=== PATIENT | female | born 1985 | race Caucasian/White ===

== ENCOUNTER 2021-06-25 08:37 | Emergency (ER) | payer MEDICARE, SELFPAY ==
[2021-06-25 08:51] VITALS: BP 123/86; PULSE 92; RESP 18; TEMP 36.3; O2SAT 95; BMI 37.0
--- NOTE | 2021-06-25 09:48 | ED.DENTAL ---
HPI - Dental/Oral General Chief complaint: Dental/Oral Stated complaint: dental pain Time Seen by Provider: 06/25/21 09:40 Source: patient Mode of arrival: ambulatory Limitations: no limitations History of Present Illness HPI Narrative: 35-year-old female with no known medical history presents to the emergency department with complaints of generalized mouth pain/teeth pain X1 year worsening over the past week. Patient tells me that she was recently told that she has a cavity on every single tooth she has in her mouth, and she notes most of her teeth are rotting, and falling. She states she is scheduled to get these teeth pulled next week however she is in severe pain. She has not been seen by a dentist in many years, and has not had any dental procedures. Her main complaint today is pain. She goes to [facility] dental. Her appointments for next week. She denies any fevers, chills, nausea, vomiting, chest pain, ear pain, sore throat,shortness of breath. MD Complaint: tooth pain Location: Tooth # (All teeth in mouth ) Onset (ago): year(s) (1) Duration: constant Severity: severe Relieving factors: nothing Exacerbating factors: other ( everything ) Context: history of dental caries and poor dental care Treatment prior to arrival: none Related Data Previous Rx's Medication Instructions Recorded amoxicillin 500 mg capsule 500 mg PO BID 10 Days #20 cap 06/25/21 oxycodone-acetaminophen 5 mg-325 1 tab PO TID PRN #5 tab 06/25/21 mg tablet (Percocet) Allergies Allergy/AdvReac Type Severity Reaction Status Date / Time codeine [CODEINE] Allergy Unknown NAUSEA Verified 06/25/21 08:50 VOMITTING Fish Containing Products Allergy Unknown SWELLING Verified 06/25/21 08:50 Review of Systems Review of Systems: Constitutional : No Fever, No Chills, Dental: + dental pain, + mouth pain Cardiovascular : No Chest Pain, No SOB Respiratory : No Dyspnea Gastrointestinal : No abdominal pain Musculoskeletal : No Joint Swelling Skin : No rash, No skin laceration Neuro : No Weakness, No Numbness Psych : No SI/HI PMFSH Past Medical History Attestation statement: The following information was validated with the patient. Source: old records reviewed and nursing notes reviewed Medical History (Updated 06/25/21 @ 09:47 by SHAINA Melendez) Patient denies medical problems Social History Social History Advance Directives: No Advance Directives Information Provided: No Physical Exam Vital Signs: Vital Signs: Last Vital Signs Temp 97.3 F 06/25/21 08:51 Pulse 92 06/25/21 08:51 Resp 18 06/25/21 08:51 BP 123/86 06/25/21 08:51 Pulse Ox 95 06/25/21 08:51 Body Mass Index 37.0 Appearance: Alert.? Oriented X3.? No acute distress.? Head: Normocephalic, atraumatic, no step-offs or deformities Eyes: Pupils equal, round and reactive to light.? ENT: Pharynx normal.?+ poor dention throughout, missing teeth, rotting teeth,broken teeth evident caries. + Halitosis. No palpable fluctuance or visible abscess. No discharge. No trismus. No gum swelling or bleeding. No tongue swelling Neck: Normal inspection.? Neck supple.? CVS: Normal heart rate and rhythm.? Pulses normal.? Respiratory: No respiratory distress.? Breath sounds normal.? Abdomen: Soft and nontender.? Skin: Skin warm and dry.? Normal skin color.? Normal skin turgor.? Extremities: No lower extremity edema.? No calf ttp. 5/5 strength to bilateral upper and lower extremities Neuro: Oriented X 3.? No motor deficit.? No sensory deficit. Course Reevaluation(s) Reevaluation #1: Patient agrees with the plan, she is safe for discharge home with dentist follow-up next week at [facility]. She will be discharged home on pain medicine and antibiotics. Time: 09:57 MDM - Dental/Oral MDM Narrative Medical decision making narrative: 0945 35-year-old female with no known medical history presents to the emergency department with mouth/tooth pain x1 year progressively worsening over past week. Patient states that she is scheduled to get her teeth pulled and have mild work done next week at [facility]. Her main complaint today is pain. She denies all signs of infection. Upon physical examination patient appears well controlling secretions, speaking in full sentences, no distress. There is poor dentition throughout, missing teeth, rotting teeth,broken teeth evident caries. Severe Halitosis. No palpable fluctuance or visible abscess. No discharge. No trismus. No gum swelling or bleeding. No tongue swelling Plan at this time is to start patient on prophylactic antibiotic in prescribe arm pain medicine that will get her through to her dentist appointment. I attest that I have reviewed patients [place], and at the time prescribing the patient a controlled substance is appropriate based off of patients diagnosis and treatment plan. Medical Records Attestation: I reviewed the patient's medical records. Lab Data Attestation: I reviewed the patient's lab results. Critical Care Time Critical Care Time Critical Care Time: No Discharge Plan Discharge Clinical Impression: Toothache Patient Disposition: Home, Self-Care Instructions: Toothache (ED) Additional Instructions: Take your medications as prescribed. If you were prescribed antibiotics today, it is important that you take your medication to their entirety, do not skip any doses, do not finish them early. Follow-up with your primary care provider this week. Please follow-up with your dentist. Return to the emergency department with new or worsening symptoms. In case of emergency call 911 I attest that I have reviewed patients [place], and at the time prescribing the patient a controlled substance is appropriate based off of patients diagnosis and treatment plan. Prescriptions: New amoxicillin 500 mg capsule 500 mg PO BID 10 Days Qty: 20 RF: 0 oxycodone-acetaminophen [Percocet] 5-325 mg tablet 1 tab PO TID PRN (Reason: pain) Qty: 5 RF: 0 Referrals: Physician,Unknown J [Primary Care Provider] - 2 days Stand Alone Forms: Work/School Release
[2021-06-25] MEDS: oxyCODONE HCl Immed Release 5 MG TABLET PO (10:15)
== END 2021-06-25 10:24 | disposition home or self-care (01) ==
LOC: HO.ED 09:52
PROVIDERS: Emergency Provider Emergency Medicine
DX: K08.89 Other specified disorders of teeth and supporting structures (principal); K02.9 Dental caries, unspecified; R19.6 Halitosis
CPT/HCPCS: 99283

== ENCOUNTER 2021-12-23 16:34 | Emergency (ER) | payer MEDICARE, SELFPAY ==
[2021-12-23 17:36] VITALS: BP 129/67; PULSE 88; RESP 18; TEMP 36; O2SAT 97; BMI 37.3
--- NOTE | 2021-12-23 17:58 | ED_ITS ---
HPI - Dental/Oral General Chief complaint: Dental/Oral Stated complaint: l ear pain r dental pain Time Seen by Provider: 12/23/21 17:47 Source: patient Mode of arrival: ambulatory Limitations: no limitations History of Present Illness HPI Narrative: 36 yo female with a longstanding history of extensive dental caries with severe phobia of the dentist here with right sided upper denta pain intermittent for months. patient tells me she saw her dentist and they want to give her general anesthesia for dental care. Patient tells me she is waiting to hear from her PCP to get a pre-op physical for clearance. She also reports for the last four days her left ear has been hurting her. No URI symptoms. No fevers, chills. Related Data Previous Rx's Medication Instructions Recorded amoxicillin 500 mg capsule 500 mg PO BID 10 Days #20 cap 06/25/21 oxycodone-acetaminophen 5 mg-325 1 tab PO TID PRN #5 tab 06/25/21 mg tablet (Percocet) amoxicillin 500 mg capsule 500 mg PO BID #20 cap 12/23/21 ibuprofen 600 mg tablet 600 mg PO Q8H PRN #20 tab 12/23/21 oxycodone 5 mg tablet 5 mg PO Q8H PRN #5 tab 12/23/21 Allergies Allergy/AdvReac Type Severity Reaction Status Date / Time codeine [CODEINE] Allergy Unknown NAUSEA Verified 06/25/21 08:50 VOMITTING Fish Containing Products Allergy Unknown SWELLING Verified 06/25/21 08:50 Review of Systems Review of Systems: Yes all other systems are reviewed and are negative Constitutional: Constitutional: Reports no additional constitutional complaints, Denies body ache(s), Denies chills, Denies fever(s), Denies headache(s) and Denies weakness Eyes: Eyes: Reports no additional eye complaints and Denies change in vision ENT: Reports system reviewed and no additional complaints, except as documented, Reports dental pain, Denies dizziness, Reports otalgia, Denies headache(s), Denies nasal congestion, Denies nasal discharge and Denies neck pa in Cardiovascular: Cardiovascular: Reports no additional cardiovascular complaints, Denies chest pain, Denies leg edema and Denies dyspnea Respiratory: Respiratory: Reports no additional respiratory complaints, Denies cough and Denies dyspnea Gastrointestinal: Gastrointestinal: Reports no additional gastrointestinal complaints, Denies abdominal pain, Denies diarrhea, Denies nausea and Denies vomiting Genitourinary: Genitourinary: Reports no additional female genitourinary complaints and Denies urinary incontinence Musculoskeletal: Musculoskeletal: Reports no additional musculoskeletal complaints, Denies back pain, Denies arthralgias, Denies joint swelling, Denies neck pain, Denies numbness and Denies tingling Integumentary/Breasts: Skin/Breast: Reports system reviewed and no additional complaints, except as docu and Denies rash Neurologic: Reports system reviewed and no additional complaints, except as documented, Denies Abnormal speech present, Denies dizziness, Denies headache(s), Denies numbness, Denies tingling and Denies weakness PMFSH Past Medical History Attestation statement: The following information was validated with the patient. Source: old records reviewed and nursing notes reviewed Medical History Patient denies medical problems Social History Social History Advance Directives: No Advance Directives Information Provided: No Physical Exam Vital Signs: Vital Signs: Last Vital Signs Temp 96.8 F 12/23/21 17:36 Pulse 88 12/23/21 17:36 Resp 18 12/23/21 17:36 BP 129/67 12/23/21 17:36 Pulse Ox 97 12/23/21 17:36 BMI result Body Mass Index 37.3 Const: General: cooperative, healthy appearing, comfortable and no acute distress Orientation/consciousness: patient oriented x3 Limitations: no limitations HEENT: Head: Yes normal to inspection Ears: hearing grossly normal bilaterally, TM normal on the right and TM abnormal bulging, wth effusion and erythematous on the left General nose exam: Normal external nose present Face and sinus: Yes normal facial exam Mouth: Normal oral and palatal mucosa present Teeth and gingiva: caries (extensive. no obvious absces/fluctuance or induration. NO trismus) Throat: Yes posterior oropharynx normal Eyes: General: appearance normal, both eyes and all related structures Pupils: Equal, round and reactive pupils present Neck: Neck: Yes normal visual inspection, Yes full ROM, Yes no lymphadenopathy and Yes no meningeal signs Chest: Chest palpation & inspection: normal inspection of the chest Resp: Effort & Inspection: normal respiratory effort Auscultation: clear to auscultation bilaterally Cardio: Rate: regular rate Rhythm: regular rhythm Peripheral pulses: Peripheral pulses 2+ throughout GI: Inspection: Yes normal to inspection Palpation (GI): Soft to palpation and nontender Auscultation: normal bowel sounds Back/Spine/Pelvis: Thoracic/Lumbar Spine: thoracic and lumbar spine normal to inspection Skin: General skin exam: no rashes or lesions noted Neuro: General: patient oriented x3, no meningeal signs, no focal motor deficits and normal sensation to monofilament Cranial nerves: Yes Equal, round and reactive pupils present Cognition (Neuro): normal cognition Speech: No Abnormal speech present Gait exam (Neuro): Normal gait present Motor exam (neuro): 5/5 motor strength present throughout Extrem: General: Yes normal to inspection Course Course Course Narrative: 36 yo female here with complaints of dental pain with extensive dental caries. She is working with her dentist and PCP to get a pre-op evaluation so she may have GA d/t her dentist phobia. No obvious abscess on exam. No trismus. Has extensive caries. Also L AOM on exam. Will treat with course of antibiotics. Reviewed [place]. Will give small supply oxycodone. Reviewed worrisome signs and symptoms of when to return to the emergency department. Comfortable discharge home. MDM - Dental/Oral Medical Records Attestation: I reviewed the patient's medical records. Lab Data Attestation: I reviewed the patient's lab results. Discharge Plan Discharge Clinical Impression: Dental caries, Otitis media Patient Disposition: Home, Self-Care Instructions: Ear Infection (ED), Toothache (ED) Additional Instructions: follow-up with dental clinic/PCP Salt water gargles Prescriptions: New amoxicillin 500 mg capsule 500 mg PO BID Qty: 20 0RF ibuprofen 600 mg tablet 600 mg PO Q8H PRN (Reason: pain) Qty: 20 0RF oxycodone 5 mg tablet 5 mg PO Q8H PRN (Reason: pain) Qty: 5 0RF No Action amoxicillin 500 mg capsule 500 mg PO BID 10 Days Qty: 20 0RF oxycodone-acetaminophen [Percocet] 5-325 mg tablet 1 tab PO TID PRN (Reason: pain) Qty: 5 0RF Rx Instructions: Patient can partially fill prescription upon request Referrals: Physician,Unknown J [Primary Care Provider] -
[2021-12-23] MEDS: Ketorolac Tromethamine 60 MG/2 ML VIAL IM (18:39)
== END 2021-12-23 18:45 | disposition home or self-care (01) ==
PROVIDERS: Emergency Provider Internal Medicine
DX: H66.92 Otitis media, unspecified, left ear (principal); K02.9 Dental caries, unspecified; K08.89 Other specified disorders of teeth and supporting structures; H92.02 Otalgia, left ear; Z79.899 Other long term (current) drug therapy
CPT/HCPCS: 96372; 99283; 99284; J1885

== ENCOUNTER 2022-01-24 12:46 | Emergency (ER) | payer MEDICARE, SELFPAY ==
--- NOTE | 2022-01-24 12:47 | ED_ITS ---
HPI - Overdose General Chief Complaint: Overdose Stated Complaint: OD,narcan given w/ good results per ems Time Seen by Provider: 01/24/22 12:47 Source: patient Mode of arrival: EMS Limitations: no limitations History of Present Illness HPI Narrative: denies known ingestion found unresponsive by [facility]ot, has been dealing with sinus infection, woke up with narcan 0.4mg - vomited in ED, reports no use of opiates x 7 years complaint: other (states she is foggy and not sure but woken up with 0.4mg IV narcan by EMS after being found unresponsive) Onset (ago): minute(s) (just prior to arrival) Timing confirmed by: other (navjot) Context: Accidental Overdose: uncertain what happened Associated symptoms: other (sinus infection blocked nose, congestion, blocked ears) Treatments Prior to Arrival: narcan (0.4mg narcan) Related Data Previous Rx's Medication Instructions Recorded amoxicillin 500 mg capsule 500 mg PO BID 10 days #20 caps 06/25/21 oxycodone-acetaminophen 5 mg-325 1 tab PO TID PRN pain #5 tabs 06/25/21 mg tablet (Percocet) amoxicillin 500 mg capsule 500 mg PO BID #20 caps 12/23/21 ibuprofen 600 mg tablet 600 mg PO Q8H PRN pain #20 tabs 12/23/21 oxycodone 5 mg tablet 5 mg PO Q8H PRN pain #5 tabs 12/23/21 amoxicillin 875 mg-potassium 1 tab PO BID #14 tabs 01/24/22 clavulanate 125 mg tablet Allergies Allergy/AdvReac Type Severity Reaction Status Date / Time codeine [CODEINE] Allergy Unknown NAUSEA Verified 06/25/21 08:50 VOMITTING Fish Containing Products Allergy Unknown SWELLING Verified 06/25/21 08:50 Review of Systems Review of Systems: Constitutional : No Fever, No Chills ENT/Mouth : pos Ear Pain, pos Nasal Congestion, No sore throat Eyes: No Eye Pain, No Swelling, No Redness Cardiovascular : No Chest Pain, No SOB Respiratory : No Cough, No Sputum, No Dyspnea Gastrointestinal : No Nausea, No Vomiting, No Diarrhea, No Hematochezia, No Melena Genitourinary : No Dysuria, No Urinary Frequency, No Hematuria Musculoskeletal : No Myalgias Skin : No Skin Lesions, No rash Neuro : No Weakness, No Numbness, No Paresthesias, No Dizziness, No Headache Psych : pno Anxiety, no Depression, no SI/HI Heme/Lymph: No Lymphadenopathy Endocrine : No Polyuria, No Polydipsia All other systems reviewed and are negative [facility] Past Medical History Attestation statement: The following information was validated with the patient. Medical History Patient denies medical problems Social History Social History (Updated 01/24/22 @ 13:39 by aBrbi Pal DO) Patient Tobacco Use Status: Current everyday Tobacco user Smoked in Last 30 Days: Yes Use of substances other than those prescribed or required for medical reasons: Yes Substance Use Type: Marijuana Substance Use Frequency: Daily Last Used Substance: Days (ago) Any prior treatment program specific to substance use: Yes Advance Directives: No Advance Directives Information Provided: No Physical Exam Vital Signs: Vital Signs: Last Vital Signs Temp 97.9 F 01/24/22 12:56 Pulse 88 01/24/22 13:34 Resp 14 01/24/22 13:34 BP 127/78 01/24/22 13:34 Pulse Ox 97 01/24/22 13:34 O2 Del Method 01/24/22 13:34 BMI result Body Mass Index 37.0 Appearance: Alert. Oriented X3. No acute distress. Active vomiting x 1 Eyes: Pupils equal, round and reactive to light. ENT: Pharynx normal. bilateral TMs clear mild clear effusions but no erythema and no bulging noted Neck: Normal inspection. Neck supple. CVS: Normal heart rate and rhythm. Pulses normal. Respiratory: No respiratory distress. Breath sounds normal. Abdomen: Soft and non-tender. Skin: Skin warm and dry. Normal skin color. Normal skin turgor. Extremities: No lower extremity edema. No calf ttp Neuro: Oriented X 3. No motor deficit. No sensory deficit. Course Course Course Narrative: obs x 1 hour and 40 minutes feeling much better no need for repeat narcan will treat as sinusitis and DC home refusing SUDE evaluation, denies detox, does not want help with heroin - states she did use 1 bag today, offered resources but she declines and wants to go home now given narcan to take home MDM - Overdose MDM Narrative Medical decision making narrative: 36 yo female with hx of opiate use disorder but reports sobriety x 7 years not on maintenance therapy states she has been dealing with a sinus infection over the past few days and went to sleep today the next thing she new she was woken up by EMS - stevee found the patient unresponsive, woke up to EMS 0.4mg IV narcan. She is vague and not forthcoming about opiate use and states it is foggy. Will obtain flu/covid swab, EKG, treat symptoms and observe, she denies wanting help for substance abuse no detox and does not need treatment. Declines SUDE evaluation Lab Data Labs: Lab Results 01/24/22 01/24/22 Range/Units 13:30 13:30 COVID-19 ([facility]) Negative (Negative) COVID-19 Clin Com See Note Influenza Type A ([facility]) Negative (Negative) Influenza Type B ([facility]) Negative (Negative) Influenza A & B Note See Note ECG Data Attestation: I personally reviewed and interpreted this ECG as follows: ECG interpretation date: 01/24/22 ECG interpretation time: 13:36 Interpretation: Rate: 83 Rhythm: NSR [place]: normal Normal P waves. Normal SONIA. Normal QRS complex. ST T wave : normal no KARO qTC: normal prior studies: no acute ischemia The study has been interpreted contemporaneously by me. Discharge Plan Discharge Clinical Impression: Sinusitis Qualifiers: Sinusitis location: maxillary Chronicity: acute Recurrence: non-recurrent Qualified Code(s): J01.00 - Acute maxillary sinusitis, unspecified Drug overdose Qualifiers: Encounter type: initial encounter Injury intent: accidental or unintentional Qualified Code(s): T50.901A - Poisoning by unspecified drugs, medicaments and biological substances, accidental (unintentional), initial encounter Patient Disposition: Home, Self-Care Instructions: Sinusitis (ED), Adult Overdose (ED) Additional Instructions: return to ED for any worsening symptoms or concerns Prescriptions: New amoxicillin-pot clavulanate 875-125 mg tablet 1 tab PO BID Qty: 14 0RF No Action amoxicillin 500 mg capsule 500 mg PO BID 10 Days Qty: 20 0RF oxycodone-acetaminophen [Percocet] 5-325 mg tablet 1 tab PO TID PRN (Reason: pain) Qty: 5 0RF Rx Instructions: Patient can partially fill prescription upon request amoxicillin 500 mg capsule 500 mg PO BID Qty: 20 0RF ibuprofen 600 mg tablet 600 mg PO Q8H PRN (Reason: pain) Qty: 20 0RF oxycodone 5 mg tablet 5 mg PO Q8H PRN (Reason: pain) Qty: 5 0RF
[2022-01-24 12:56] VITALS: BP 120/74; BP 141/91; PULSE 118; PULSE 91; RESP 16; TEMP 36.6; O2SAT 98; BMI 37.0
--- NOTE | 2022-01-24 13:07 | ECG_ITS ---
Test Reason : SUBSTANCE ABUSE Blood Pressure : / mmHG Vent. Rate : 083 BPM Atrial Rate : 083 BPM P-R Int : 160 ms QRS Dur : 100 ms QT Int : 398 ms P-R-T Axes : 045 045 019 degrees QTc Int : 467 ms Normal sinus rhythm Normal ECG No previous ECGs available Referred By: Barbi Pal Electronically Signed By:GARFIELD CORBIN MD
[2022-01-24 13:34] VITALS: BP 127/78; PULSE 88; RESP 14; O2SAT 97
[2022-01-24] MEDS: Magnesium Sulfate/H2O 2 GM/50 ML PIGGYBACK IV (13:34)
[2022-01-24] MEDS: ondansetron HCL 4 MG/2 ML VIAL IVPUSH (13:34)
[2022-01-24 13:59] LABS: Influenza A Negative (Negative); Influenza B2 Negative (Negative)
--- NOTE | 2022-01-24 14:06 | PC.NURSE ---
C/O OF MOUTH PAIN, TEETH ARE ROTTEN AND WAS TRYING TO GET RELIEF FROM THE MOUTH PAIN. DID 1 BAG OF HEROIN ( SNORT) TODAY, HAS BEEN CLEAN FOR 7 YEARS AND THIS HAS BEEN THIS ONLY TIME SHE HAS DONE THIS SINCE CLEAN.
[2022-01-24 14:07] LABS: COVID-19 Test Negative (Negative); IDNOW Serial# 55D5AD1C
== END 2022-01-24 14:51 | disposition home or self-care (01) ==
PROVIDERS: Emergency Provider Emergency Medicine; PCP Family Medicine
DX: T40.601A Poisoning by unspecified narcotics, accidental (unintentional), initial encounter (principal); J01.00 Acute maxillary sinusitis, unspecified; F12.10 Cannabis abuse, uncomplicated; Y92.9 Unspecified place or not applicable; Z20.822 Contact with and (suspected) exposure to COVID-19; Z79.899 Other long term (current) drug therapy
CPT/HCPCS: 87502; 87635; 93005; 96365; 96375; 99284; J2405; J3475